=== PATIENT | female | born 1980 | race Caucasian/White ===

== ENCOUNTER 2017-09-03 15:04 | Emergency (ER) | payer MEDICAID ==
[2017-09-03 15:11] VITALS: O2SAT 98
--- NOTE | 2017-09-03 15:48 | C.PDOC ---
History Of Present Illness 36 year old female presents to the ED complaining of right sided back pain for the past 3 days. Patient states he pain started on the upper back and strted radiating down. 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 Today patient reports pain is worsened by deep breaths, twisting side to side, and also c/o SOB due to her pain in the back. Patient denies CP, numbness, weakness, urinary symptoms. Time Seen by Provider: 09/03/17 15:15 Chief Complaint (Nursing): Abdominal Pain History Per: Patient History/Exam Limitations: no limitations Onset/Duration Of Symptoms: Days Current Symptoms Are (Timing): Still Present Quality Of Discomfort: "Pain" Severity: None Previous Symptoms: Back Pain Exacerbating Factor(s): Turning Recent travel outside of the [place]: No Additional History Per: Patient Past Medical History Reviewed: Historical Data, Nursing Documentation, Vital Signs Vital Signs: Last Vital Signs Temp 97.9 F 09/03/17 15:08 Pulse 90 09/03/17 15:08 Resp 16 09/03/17 15:08 BP 135/86 09/03/17 15:08 Pulse Ox 98 09/03/17 16:30 - Medical History PMH: No Chronic Diseases Surgical History: No Surg Hx Family History: States: Unknown Family Hx - Social History Hx Alcohol Use: Yes Hx Substance Use: No - Immunization History Hx Tetanus Toxoid Vaccination: No Hx Influenza Vaccination: No Hx Pneumococcal Vaccination: No Review Of Systems Constitutional: Negative for: Fever, Chills Cardiovascular: Negative for: Chest Pain, Palpitations Respiratory: Negative for: Cough, Shortness of Breath Gastrointestinal: Negative for: Nausea, Vomiting, Abdominal Pain Musculoskeletal: Positive for: Back Pain Skin: Negative for: Rash Neurological: Negative for: Weakness, Numbness Physical Exam - Physical Exam Appears: Non-toxic, No Acute Distress Skin: Normal Color, Warm, Dry Head: Atraumatic, Normacephalic Nose: No Discharge Oral Mucosa: Moist Neck: Normal ROM, No Midline Cervical Tenderness, Supple Chest: Symmetrical Cardiovascular: Rhythm Regular, No Murmur Respiratory: Normal Breath Sounds, No Rales, No Rhonchi, No Wheezing Gastrointestinal/Abdominal: Soft, No Tenderness Back: No CVA Tenderness, No Vertebral Tenderness, Other (Right subscapular, lumbar tenderness) Extremity: Normal ROM, No Pedal Edema, No Calf Tenderness, No Swelling Neurological/Psych: Oriented x3, Normal Speech, Other (No focal deficits) Gait: Steady ED Course And Treatment - Laboratory Results Result Diagrams: 09/03/17 16:04 09/03/17 16:04 O2 Sat by Pulse Oximetry: 98 (On RA) Pulse Ox Interpretation: Normal - Radiology CXR: Interpreted by Me, Viewed By Me, Read By Radiologist CXR Interpretation: Yes: Other (No evidence of acute pulmonary disease.). No: No Acute Disease, Infiltrates Medical Decision Making Medical Decision Making: Impression: right sided back pain Plan: * EKG * CXR * Blood work * Valium 5 mg PO * Urine culture * UA progress: All labs reviewed and negative for acute findings, coags negative. UA was negative. CXR shows no acute cardiopulmonary disease Re-eval: Patient reports feeling better she has no severe back pain, she states she feels drowsy. I explained all lab and xray findings with patient. She is asking for Rx to take home. Recommend heat or ice packs to the area and will discharge home with Rx. Disposition Counseled Patient/Family Regarding: Studies Performed, Diagnosis, Need For Followup, Rx Given - Disposition Disposition: HOME/ ROUTINE Disposition Time: 16:52 Condition: STABLE Additional Instructions: Your labs and xray were normal. Follow up with your primary medical doctor or clinic in 2-5 days for further evaluation. Take medications as prescribed. Return to the emergency department at any time if symptoms persist or worsen. Prescriptions: Acetaminophen [Acetaminophen Extra Strength] 500 mg PO Q8 #24 tablet Cyclobenzaprine [Cyclobenzaprine HCl] 10 mg PO TID #21 tab Instructions: Thoracic Back Strain (ED) Forms: [employer] (Mongolian) - POA Present On Arrival: None - Clinical Impression Clinical Impression: Muscle strain of right upper back - PA / HEALTH ANALYTICS CONSULTANT / Resident Statement MD/DO has reviewed & agrees with the documentation as recorded. - Scribe Statement The provider has reviewed the documentation as recorded by the Scribe Kirt Beltran All medical record entries made by the Scribe were at my direction and personally dictated by me. I have reviewed the chart and agree that the record accurately reflects my personal performance of the history, physical exam, medical decision making, and the department course for this patient. I have also personally directed, reviewed, and agree with the discharge instructions and disposition. Wells Criteria for PE - Wells Criteria for Pulmonary Embolism Clinical Signs and Symptoms of DVT: No P.E is #1 Diagnosis, or Equally Likely: No Heart Rate >100: No Immobilization at least 3 days;Surgery previous 4 weeks: No Previous, objectively diagnosed PE or DVT: No Hemoptysis: No Malignancy w/treatment within 6 months, or palliative: No Total Score: 0
--- NOTE | 2017-09-03 15:48 | C.PDOC ---
Time Seen by Provider: 09/03/17 15:15 Chief Complaint (Nursing): Abdominal Pain Past Medical History Vital Signs: Last Vital Signs Temp 97.9 F 09/03/17 15:08 Pulse 90 09/03/17 15:08 Resp 16 09/03/17 15:08 BP 135/86 09/03/17 15:08 Pulse Ox 98 09/03/17 15:08 Family History: States: Unknown Family Hx - Social History Hx Alcohol Use: Yes Hx Substance Use: No - Immunization History Hx Tetanus Toxoid Vaccination: No Hx Influenza Vaccination: No Hx Pneumococcal Vaccination: No ED Course And Treatment O2 Sat by Pulse Oximetry: 98 Disposition - Disposition
[2017-09-03 15:57] LABS: RBC URINE 2 /hpf (0-3); URINE BACTERIA RARE (<OCC); URINE BILIRUBIN NEGATIVE (NEGATIVE); URINE BLOOD NEGATIVE (NEGATIVE); URINE COLOR Yellow (YELLOW); URINE GLUCOSE (UA) NORMAL (Normal); URINE KETONE NEGATIVE (NEGATIVE); URINE LEUKOCYTE ESTERASE 2+ Leu/uL (Negative); URINE PROTEIN NEGATIVE (NEGATIVE); URINE UROBILINOGEN NORMAL mg/dL (0.2-1.0); WBC URINE 11 /hpf (0-5)
[2017-09-03 16:08] LABS: BASO % 0.4 % (0.0-2.0); EOS # 0.4 K/uL (0.0-0.7); EOS % 6.4 % (0.0-4.0); HEMATOCRIT 40.6 % (34.0-47.0); LYMPH # 2.1 K/uL (1.0-4.3); LYMPH % 35.3 % (20.0-40.0); MEAN CORPUSCULAR HGB CONC 34.1 g/dL (33.0-37.0); MEAN PLATELET VOLUME 7.5 fL (7.2-11.7); MONO # 0.3 K/uL (0.0-0.8); MONO % 4.7 % (0.0-10.0); RED CELL DISTRIBUTION WIDTH 13.3 % (11.5-14.5); WHITE BLOOD COUNT 5.9 K/uL (4.8-10.8)
--- NOTE | 2017-09-03 16:12 | RAD ---
HISTORY: SOB COMPARISON: No prior. TECHNIQUE: Chest PA and lateral FINDINGS: LUNGS: No active pulmonary disease. PLEURA: No significant pleural effusion identified. No pneumothorax apparent. CARDIOVASCULAR: Normal. OSSEOUS STRUCTURES: No significant abnormalities. VISUALIZED UPPER ABDOMEN: Normal. OTHER FINDINGS: None. IMPRESSION: No evidence of acute pulmonary disease.
[2017-09-03 16:22] LABS: ALB/GLOB RATIO 1.4 (1.0-2.1); ALKALINE PHOSPHATASE 84 U/L (38-126); ALT/SGPT 98 U/L (9-52); AST/SGOT 56 U/L (14-36); BILIRUBIN,TOTAL 0.4 mg/dL (0.2-1.3); BLOOD UREA NITROGEN 9 mg/dL (7-17); CALCIUM 8.3 mg/dl (8.6-10.4); CARBON DIOXIDE 27 mmol/L (22-30); CHLORIDE 106 mmol/L (98-107); GFR AFRICAN-AMERICAN > 60; GLUCOSE,RANDOM 123 mg/dL (65-105); POTASSIUM 4.2 mmol/L (3.6-5.2); SODIUM 138 mmol/L (132-148); TOTAL PROTEIN 6.3 g/dL (6.3-8.3)
[2017-09-03 16:26] LABS: PARTIAL THROMBOPLASTIN TIME 31 SECONDS (21-34)
[2017-09-03 16:33] LABS: INR 0.9
[2017-09-03 18:40] VITALS: BP 134/89; PULSE 75; RESP 20; TEMP 98.9
== END 2017-09-03 18:44 | disposition home or self-care (01) ==
LOC: C.ER 15:04
DX: S29.012A Strain of muscle and tendon of back wall of thorax, initial encounter (principal); X58.XXXA Exposure to other specified factors, initial encounter

== ENCOUNTER 2017-09-27 08:44 | Day surgery (SDC) | payer MEDICAID ==
[2017-09-27 09:08] VITALS: BMI 29.2
[2017-09-27] MEDS ORDERED: Propofol 10 mg/ml Inj (20 ML) ONE ×2 (10:26)
[2017-09-27 11:10] VITALS: TEMP 97.5; O2SAT 100
[2017-09-27 12:29] VITALS: RESP 14
[2017-09-27 12:33] VITALS: BP 130/94; PULSE 65
== END 2017-09-27 11:55 | disposition home or self-care (01) ==
LOC: C.ENDO 08:44
PROVIDERS: ATTEND Internal Medicine Gastroenterology
DX: R10.13 Epigastric pain (principal); R19.7 Diarrhea, unspecified; F17.210 Nicotine dependence, cigarettes, uncomplicated; K64.1 Second degree hemorrhoids; K29.70 Gastritis, unspecified, without bleeding
CPT/HCPCS: 43239; 45380; 84703; 88305; J2704

== ENCOUNTER 2017-10-24 15:22 | Emergency (ER) | payer MEDICAID ==
[2017-10-24 15:23] VITALS: BMI 29.2
[2017-10-24 15:37] VITALS: RESP 18; TEMP 97.9
--- NOTE | 2017-10-24 16:04 | C.PDOC ---
History Of Present Illness GEN ITCH, RASH X 2 DAYS. UNK CAUSE. NO ASSOC SWELLING, SOB, WHEEZE, NV. NO MEDS TAKEN EXAM MILD DIST NONTOXIC HEENT NO ANGIOEDEMA LUNGS CTA BL NO W/R/R SKIN +GEN HIVES NO EDEMA Time Seen by Provider: 10/24/17 15:42 Chief Complaint (Nursing): Allergic Reaction History Per: Patient History/Exam Limitations: no limitations Onset/Duration Of Symptoms: Days (2) Current Symptoms Are (Timing): Still Present Past Medical History Reviewed: Historical Data, Nursing Documentation, Vital Signs Vital Signs: Last Vital Signs Temp 97.9 F 10/24/17 16:58 Pulse 75 10/24/17 16:58 Resp 18 10/24/17 16:58 BP 134/96 H 10/24/17 16:58 Pulse Ox 97 10/24/17 16:58 Family History: States: No Known Family Hx - Social History Hx Alcohol Use: Yes Hx Substance Use: No - Immunization History Hx Tetanus Toxoid Vaccination: No Hx Influenza Vaccination: Yes Hx Pneumococcal Vaccination: No Review Of Systems Except As Marked, All Systems Reviewed And Found Negative. Constitutional: Negative for: Fever Respiratory: Negative for: Shortness of Breath, Wheezing Gastrointestinal: Negative for: Nausea, Vomiting, Abdominal Pain Skin: Positive for: Rash (general itchy rash) Physical Exam - Physical Exam Appears: Non-toxic, In Acute Distress (Mild) Skin: Warm, Dry, Other ((+) General hives) Eye(s): bilateral: Normal Inspection, PERRL, EOMI Oral Mucosa: Moist Tongue: Normal Appearing, No Swelling Lips: Normal Appearing, No Swelling Throat: Normal, No Erythema, No Exudate Respiratory: Normal Breath Sounds, No Rales, No Rhonchi, No Stridor, No Wheezing Extremity: Normal ROM, No Swelling Neurological/Psych: Oriented x3, Normal Speech, Normal Motor, Normal Sensation ED Course And Treatment O2 Sat by Pulse Oximetry: 98 (RA) Pulse Ox Interpretation: Normal Medical Decision Making Medical Decision Making: PLAN: * Benadryl PO * Pepcid PO * Prednisone PO Disposition Counseled Patient/Family Regarding: Diagnosis, Need For Followup, Rx Given - Disposition Referrals: YOUR,PMD [Other] Disposition: HOME/ ROUTINE Disposition Time: 16:30 Condition: IMPROVED Prescriptions: DiphenhydrAMINE [Benadryl] 50 mg PO TID PRN #30 cap PRN Reason: Itching / Pruritus Famotidine [Pepcid AC] 10 mg PO DAILY #4 tablet predniSONE [Prednisone] 60 mg PO DAILY #12 tab Instructions: Urticaria (ED) Forms: [facility] [employer] ([place]), Work Excuse - Clinical Impression Clinical Impression: Allergic urticaria - Scribe Statement The provider has reviewed the documentation as recorded by the John Guevara Provider Attestation: All medical record entries made by the John were at my direction and personally dictated by me. I have reviewed the chart and agree that the record accurately reflects my personal performance of the history, physical exam, medical decision making, and the department course for this patient. I have also personally directed, reviewed, and agree with the discharge instructions and disposition.
[2017-10-24 16:58] VITALS: BP 134/96; PULSE 75
[2017-10-26 07:25] VITALS: O2SAT 98
== END 2017-10-24 16:49 | disposition home or self-care (01) ==
LOC: C.ER 15:22
DX: L50.0 Allergic urticaria (principal)